=== PATIENT | female | born 1950 | race Caucasian/White ===

== ENCOUNTER 2017-05-08 07:31 | Outpatient (CLI) | payer OTHER | END 2017-05-08 13:56 | disposition home or self-care (01) | LOC: SONOGRAMA 07:31 → MAMO-SONO 07:45 → SONOGRAMA 13:56 | DX: R10.13 Epigastric pain (principal); E04.8 Other specified nontoxic goiter ==

== ENCOUNTER 2017-05-08 09:47 | Outpatient (CLI) | payer OTHER | END 2017-05-08 13:57 | disposition home or self-care (01) | LOC: RAD 09:47 | DX: R13.0 Aphagia (principal) ==

== ENCOUNTER 2024-05-27 10:33 | Outpatient (CLI) | payer OTHER | END 2024-05-27 10:40 | disposition home or self-care (01) | LOC: SONOGRAMA 10:33 | PROVIDERS: ATTEND Internal Medicine Gastroenterology | DX: R16.0 Hepatomegaly, not elsewhere classified (principal) ==